=== PATIENT | female | born 1965 | race Caucasian/White ===

== ENCOUNTER 2016-10-14 13:55 | Emergency (ER) | payer SELFPAY ==
[~2016-10-14] VITALS: Ht 154.9 cm; Wt 68.0 kg
[~2016-10-14 13:55] MED LIST: ATENOLOL25 MG ORAL; GLIPIZIDE5 MG ORAL; METFORMIN HCL500 M1 ORAL
[2016-10-14] MEDS ORDERED: Norco 5mg/325mg tab ORAL ONE (14:00)
[2016-10-14 14:23] VITALS: BP 168/105
[2016-10-14] MEDS ORDERED: IBUPROFEN600 MG ORAL (15:12)
[2016-10-14] MEDS ORDERED: ROBAXIN-750750 MG PO (15:12)
[2016-10-14 15:21] VITALS: BP 165/103
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
== END 2016-10-14 15:22 | disposition home or self-care (01) ==
LOC: EDBD 13:55 → EMR 15:22
DX: S16.1XXA Strain of muscle, fascia and tendon at neck level, initial encounter (principal); I10 Essential (primary) hypertension; R11.0 Nausea; V49.9XXA Car occupant (driver) (passenger) injured in unspecified traffic accident, initial encounter; Y93.9 Activity, unspecified; Y92.410 Unspecified street and highway as the place of occurrence of the external cause
CPT/HCPCS: 99284